=== PATIENT | male | born 1995 | race Caucasian/White ===

== ENCOUNTER 2022-06-10 15:43 | Emergency (ER) | payer SELFPAY ==
--- NOTE | 2022-06-10 16:33 | PC.NURSE ---
called multiple times to be triaged and not in waiting room
== END 2022-06-10 16:33 | disposition left against medical advice (07) ==
DX: Z53.21 Procedure and treatment not carried out due to patient leaving prior to being seen by health care provider (principal)
CPT/HCPCS: 99199

== ENCOUNTER 2024-01-15 14:15 | Emergency (ER) | payer OTHER, SELFPAY ==
[2024-01-15 14:28] VITALS: BP 128/71; PULSE 81; RESP 20; TEMP 36.7; O2SAT 100
--- NOTE | 2024-01-15 14:46 | ED.WOUNDLAC ---
HPI - Wound/Laceration General Chief Complaint: Wound/Laceration Stated Complaint: Fall Injury/Laceration to Chin/Passed Out Time Seen by Provider: 01/15/24 14:35 Source: patient, RN notes reviewed and old records reviewed Mode of arrival: ambulatory Limitations: no limitations History of Present Illness HPI narrative: 28 year old male who present to [facility] care with complaints of slipping on wet surface at dealership and hitting his chin on pavement causing laceration to the underside of his chin, bleeding is controlled, occurred short time prior to arrival.. Patient reports that he then passed out after it happened has extreme aversion to blood and has passed out before when he sees own blood. Patient denies hitting his head or any other injuries. Patient reports no present nausea or any headache pain, reports some soreness to chin where laceration. Patient reports that his tetanus is up to date. Patient reports that fall was witnessed by co-workers. 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 CARDIOVASCULAR: Denies chest pain, palpitations, or edema. RESPIRATORY: Denies cough or dyspnea. SKIN: Reports laceration to the underside of chin region bleeding controlled MUSCULOSKELETAL: Denies musculoskeletal pain NEUROLOGIC: Denies numbness, or weakness. All systems reviewed & are unremarkable except as noted in HPI and below PMFSH Past Medical History Medical History (Updated 01/17/24 @ 09:45 by Rose Mary Maldonado NP) Autism spectrum disorder Social History Social History (Updated 01/17/24 @ 09:44 by Rose Mary Maldonado NP) Smoking status: Never smoker Alcohol intake: unknown Substance use type: does not use Living arrangements: with family Gender identity (if verbalized by the patient): Male Comments At time of signature, agree with nursing past medical, surgical, social and family history. There is no relevant family history pertinent to the presenting complaint Exam Narrative: GENERAL: Well-appearing, well-nourished, and in no acute distress. HEAD: Normocephalic, atraumatic. NECK: Supple. no lymphadenopathy CHEST: Clear to auscultation. No respiratory distress.no cough noted SAO2 100% on room air HEART: Regular rate and rhythm. No murmur heard. Normal peripheral pulses. EXTREMITIES: Normal range of motion. No edema. SKIN: Warm, dry, no rash. Reports 1 cm laceration to the underside of chin, bleeding is controlled, patient does have full chen. See procedure note NEURO: No focal deficits. Alert and oriented x3. Course Course Level of Care: Express Care Visit Vital Signs Vital signs: Vital Signs Temperature 36.7 C 01/15/24 14:28 Pulse Rate 81 01/15/24 14:28 Respiratory Rate 20 01/15/24 14:28 Blood Pressure 128/71 01/15/24 14:28 Pulse Oximetry 100 01/15/24 14:28 Oxygen Delivery Room Air 01/15/24 14:28 Temperature 36.7 C 01/15/24 14:28 Pulse Rate 81 01/15/24 14:28 Respiratory Rate 20 01/15/24 14:28 Blood Pressure 128/71 01/15/24 14:28 Pulse Oximetry 100 01/15/24 14:28 Oxygen Delivery Room Air 01/15/24 14:28 Procedures Laceration chin: Date: 01/15/24 Time: 14:50 Site: face (underside of chin) Size (cm): 1 Description: linear Depth: simple, single layer Local Anesthetic: none Pre-repair: other (cleansed and irrigated) ====== Skin Level ====== Skin layer closed with: dermabond ====== Subcutaneous Layer ====== ====== Muscle Layer ====== ====== Tendon Layer ====== Dressing: simple laceration to skin cl
== END 2024-01-15 15:18 | disposition home or self-care (01) ==
PROVIDERS: Emergency Provider Registered Nurse
DX: S01.81XA Laceration without foreign body of other part of head, initial encounter (principal); W01.0XXA Fall on same level from slipping, tripping and stumbling without subsequent striking against object, initial encounter; F84.0 Autistic disorder
CPT/HCPCS: 12011; 99212; G0463